=== PATIENT | male | born 1980 | race Caucasian/White ===

== ENCOUNTER 2023-11-07 09:21 | Outpatient (CLI) | payer OTHER, SELFPAY ==
--- NOTE | 2023-12-01 23:37 | WPDSLEEPSTUD ---
Sleep Study Date of Study: 11/07/23 Ordering Provider: Radha Amaral Interpreting Physician: Nini Wild MD Sleep Study Type: CPAP Titration Height: 1.8 m Weight: 113.398 kg Body Mass Index: 34.8 Neck Circumference (inches): 16 [place]: 6 Reason for Sleep Study CPAP titration; home sleep test 11/07/2022, severe obstructive sleep apnea; apnea-hypopnea index was 38.9, 91% obstructive events, 9% central events. Sleep History Remi Bradley is a 43-year-old man with a history of sleep apnea, had a home sleep test using a [place] 6 channel device on 11/07/2022, apnea-hypopnea index was 38.9, 210 obstructive apneas (91%) and 21 (9%) central apneas. His mean saturation was 93% lowest saturation was 78% and he spent 37 minutes, 10% the study below 90%. He was diagnosed with severe obstructive sleep apnea. His home sleep test recommended an autoPAP device. He rarely awakens from sleep feeling short of breath. He never wakes at night with heartburn, belching or coughing.??He constantly snores, and it is always loud enough that others complain. He occasionally has trouble sleeping when he has a cold. He never wakes up gasping for breath during the night. He frequently has breathing problems at night witnessed by others. He never sweats excessively at night. He never notices his heart pounding or beating irregularly during the night. He rarely falls asleep during the day. He never falls asleep involuntarily, never falls asleep while driving. He never experiences loss of muscle tone with strong emotion. He never has daytime difficulty at work due to excessive sleepiness. He never feels paralyzed on waking or falling asleep. He never experiences vivid dreams upon waking or falling asleep. He never feels afraid of going to sleep. He never has nightmares. He rarely recalls his dreams. He never has thoughts racing through his mind. He never feels sad or depressed. He occasionally feels anxiety. He never notices parts of his body jerk. He never kicks during the night. He never feels crawling or aching feelings in his legs. He never feels leg pain at night. He never has morning jaw pain, never grinds his teeth at night. He never feels bothered by pain during the day, never awakened by pain during the night. He occasionally wakes up feeling stiff in the morning, and he never wakes feeling sore or achy. He occasionally awakens with pain in his neck, spine, or joints. Normal bedtime is between 11:00 p.m. and 12 midnight, falling asleep within 15-30 minutes, without episodes of waking during the night. If he does awaken he is only awake for 5 minutes. He may go to the bathroom and let the dogs out. His normal wake time is 5:45 a.m.. On weekends, he also goes to bed between 11:00 p.m. and 12 midnight, sleeps later, until 9:00 a.m.. He estimates getting between 6 and 7 hours of sleep at night. He does not take naps in the afternoon or evening. A short nap lasting 10-15 minutes is not refreshing. Habits:??Tobacco: Never smoker Caffeine: 2-3 servings a day. Alcohol: rare Recreational substances: none PMFSH Past Medical History Medical History (Updated 12/02/23 @ 00:02 by Nini Wild MD) Anxiety Hypertension Obstructive sleep apnea Seasonal allergies Syncope Surgical History Surgical History (Updated 12/01/23 @ 23:48 by Nini Wild MD) Status post appendectomy 2007 Social History Social History (Updated 12/01/23 @ 23:43 by Nini Wild MD) Smoking status: Never smoker Substance use: never Medications Medications: Metoprolol succinate 100 mg extended release daily Losartan potassium 100 mg daily Paroxetine hydrochloride Sleep Procedure A full CPAP polysomnogram using the [email or web address] multi-channel system recorded the standard physiologic parameters including EEG, EOG, submentalis EMG, anterior tibialis EMG, EKG, body position, nasal and oral airflow using nasal pressu
[2023-12-01 23:56] VITALS: BMI 34.8
== END 2023-11-08 06:49 | disposition home or self-care (01) ==
DX: G47.33 Obstructive sleep apnea (adult) (pediatric) (principal); Z68.34 Body mass index [BMI] 34.0-34.9, adult
CPT/HCPCS: 95811

== ENCOUNTER 2024-07-09 12:29 | Emergency (ER) | payer OTHER, SELFPAY ==
--- NOTE | ~2024-07-09 | XR_ITS ---
EXAMINATION: XR chest 2V DATE: 07/09/2024 14:05 INDICATION: Chest pain. Upper respiratory tract infection. TECHNIQUE: PA and lateral views of the chest were obtained. COMPARISON: Chest radiograph dated 12/11/2015 FINDINGS: The lungs remain clear with no focal airspace opacities, pulmonary edema, pleural effusion or pneumot horax. The cardiomediastinal silhouette is normal. Mild thoracic spondylosis. IMPRESSION: 1. No acute cardiopulmonary disease. Reviewed, dictated and finalized at location B. RAL RESOURCE ECONOMIST
[2024-07-09 12:39] VITALS: BP 153/100; PULSE 67; RESP 16; TEMP 36.4; O2SAT 98
--- OUTSIDE RECORDS SUMMARY | 2024-07-09 13:16 | XMS_ITS | Clinical Summary ---
Author Organization [facility] Address [address] [place] [address] Care Team Providers Care Truck Leasing Manager Name Role Phone Shani Alford MD Primary Care Provider [phone] Source Comments [facility],non-owned Affiliates and Associated Physician Practices is amultiple site organization consisting of ambulatory clinics and hospital sitesin [place], [place]. This disclosure is being madepursuant to the Care Everywhere program and may not contain all information available regarding this patient. Last updated 18.[facility] Medications Be aware that medications may not be up to date on this document. Always verify current medications with the patient. No known medications Active Problems No known active problems Social History Tobacco Use Types Packs/Day Years Used Date Smoking Tobacco: Never Assessed Sex and Gender Information Value Date Recorded Sex Assigned at Not on file Gender Identity Not on file Sexual Orientation Not on file Last Filed Vital Signs Vital Sign Reading Time Taken Comments Blood Pressure 134/90 10/05/2016 5:00 PM CDT Pulse 87 10/05/2016 5:00 PM CDT Temperature 36.9 ??C (98.4 ??F) 10/05/2016 5:00 PM CD T Respiratory Rate 18 10/05/2016 5:00 PM CDT Oxygen Saturation 96% 10/05/2016 5:00 PM CDT Inhaled Oxygen Concentration - - Weight 99.8 kg (220 lb) 10/05/2016 5:00 PM CDT Height 180.3 cm (5' 11 ) 10/05/2016 5:00 PM CDT Body Mass Index 30.68 10/05/2016 5:00 PM CDT Plan of Treatment Health Maintenance Due Date Last Done Comments COLOGUARD (AGES 45-75) - COL ON CA SCREENING 1978 COLON MONITORING 1978 COLONOSCOPY - COLON CA SCREENING 1978 CT COLONOGRAPHY - COLON CA SCREENING 1978 Colorectal Cancer Screening 1978 FIT - COLON CA SCREENING 1978 FLEX SIG - COLON CA SCREENING 1978 LIPID TESTING 1978 HIV SCREENING 1993 HEPATITIS C SCREENING 10/24/1996 DTAP/TDAP/TD VACCINES (1 - Tdap) 1997 HEPATITIS B VACCINE (1 of 3 - 19+ 3-dose series) 1997 COVID-19 VACCINE (1 - 2023-2 5 season) 2024 INFLUENZA VACCINE (#1) 2024 DEPRESSION SCREENING 06/10/2024 ZOSTER VACCINE (1 of 2) 2028 HIB VACCINE Aged Out No longer eligi ble based on patient's age to complete this topic HPV VACCINE Aged Out No longer eligi ble based on patient's age to complete this topic MENINGOCOCCAL (Group B) VACCINE Aged Out No longer eligible based on patient's age to complete this topic MENINGOCOCCAL VACCINE Aged Out No lety di eligible based on patient's age to complete this topic PNEUMOCOCCAL VACCINE Aged Out No long er eligible based on patient's age to complete this topic Care Teams Truck Leasing Manager Relationship Specialty Start Date End Date Shani Alford MD PCP - General Internal Medicine 10/05/16
--- OUTSIDE RECORDS SUMMARY | 2024-07-09 13:16 | XMS_ITS | Clinical Summary ---
Author Organization [facility] Address [address] [place] [address]. [place], [place] [id number] [place] [address] Care Team Providers Care Firepot Operator And Tender Name Role Phone Unavailable Primary Care Provider Unavailabl e Social History Tobacco Use Types Packs/Day Years Used Date Smoking Tobacco: Never Assessed Sex and Gender Information Value Date Recorded Sex Assigned at Not on file Legal Sex Male 12:38 PM CDT Gender Identity Not on file Sexual Orientation Not on file Plan of Treatment Health Maintenance Due Date Last Done Comments Colorectal Cancer Screening Colonoscopy (10 Years) 1978 Annual Physical 1981 Hepatitis C 1996 DTaP, Tdap and Td Vaccines ( 1 - Tdap) 1997 Hepatitis B Vaccines (1 of 3 - 19+ 3-dose series) 1997 COVID-19 Vaccine (2023-2 5 season) 2024 Influenza Adult (#1) 2024 HPV Vaccines Aged Out No longer eligi ble based on patient's age to complete this topic Meningococcal B Vaccine Aged Out No l onger eligible based on patient's age to complete this topic Meningococcal Vaccine Aged Out No lety di eligible based on patient's age to complete this topic Pneumococcal Vaccine: Pediat rics (0 to 5 Years) and At-Risk Patients (6 to 64 Years) Aged Out No longer eligible b ased on patient's age to complete this topic RSV Immunizations Under 20 Months Aged Out No longer eligible based on patient's age to complete this topic Insurance [employer]
--- OUTSIDE RECORDS SUMMARY | 2024-07-09 13:16 | XMS_ITS | Patient Health Summary ---
Author Organization [facility] Address [address] [place] [address] Care Team Providers Care Public Policy Professor Name Role Phone Shani Alford MD Primary Care Provider [phone] Note from [facility],non-owned Affiliates and Associated Physician Practices is amultiple site organization consisting of ambulatory clinics and hospital sitesin [place], [place], [place] and [place]. This disclosure is being madepursuant to the Care Everywhere program and may not contain all information available regarding this patient. Last updated 18.[facility] Medications Be aware that medications may not [...] Mass Index 30.68 10/05/2016 5:00 PM CDT Care Teams Public Policy Professor Relationship Specialty Start Date End Date Shani Alford MD PCP - General Internal Medicine 10/05/16
--- OUTSIDE RECORDS SUMMARY | 2024-07-09 13:16 | XMS_ITS | Referral Summary ---
Author Organization [facility] Address [address] [place] [address] Care Team Providers Care Manager Provider Relations Name Role Phone Shani Alford MD Primary Care Provider [phone] Source Comments [facility],non-owned Affiliates and Associated Physician Practices is amultiple site organization consisting of ambulatory clinics and hospital sitesin [place], [place], [place] and [place]. This disclosure is being madepursuant to the Care Everywhere program and may not contain all information available regarding this patient. Last updated 18.[facility] Medications Be aware that medications may not [...] 10/05/2016 5:00 PM CDT Plan of Treatment Not on file Care Teams Manager Provider Relations Relationship Specialty Start Date End Date Shani Alford MD PCP - General Internal Medicine 10/05/16
--- NOTE | 2024-07-09 13:19 | ED_ITS ---
HPI - Recheck/Abnormal Lab/Rx General Chief Complaint: Recheck/Abnormal Lab/Rx <Puja Wheeler PA-C - Last Filed: 07/10/24 17:26> Stated Complaint: enlarged lymph nodes <Puja Wheeler PA-C - Last Filed: 07/10/24 17:26> Time Seen by Provider: 07/09/24 13:19 <Puja Wheeler PA-C - Last Filed: 07/10/24 17:26> Focused HPI: This is a 43 year old male that presents to the ER for back pain. Ongoing over the last couple of months. Reports he went to a chiropractor recently and his blood pressure was high. Reports he has had some tightness in his left chest and arm. This has been ongoing over the last week. He believes his lymph nodes in his neck have been sore for a couple of months. He did recently have mono. GENERAL: Well-appearing, well-nourished, and in no acute distress. HEAD: Normocephalic, atraumatic. CHEST: Clear to auscultation. ?No respiratory distress. HEART: Regular rate and rhythm.? NEURO: ?Alert and oriented x3. Patient screened in triage and initial orders placed.? ?Additional care and disposition to be based upon?diagnostic testing and treatment. <Puja Wheeler PA-C - Last Filed: 07/10/24 17:26> Related Data Allergies/Adverse Reactions: Allergies Allergy/AdvReac Type Severity Reaction Status Date / Time cephalexin Allergy Unknown Hives Verified 07/09/24 12:32 <Puja Wheeler PA-C - Last Filed: 07/10/24 17:26> Review of Systems 2 Review of Systems: All systems reviewed & are unremarkable except as noted in HPI and below <Puja Wheeler PA-C - Last Filed: 07/10/24 17:26> PMFSH Past Medical History Medical History: Medical History (Updated 07/10/24 @ 17:26 by Puja Wheeler PA-C) Obstructive sleep apnea Seasonal allergies Syncope Anxiety Hypertension <Puja Wheeler PA-C - Last Filed: 07/10/24 17:26> Surgical History Surgical History: Surgical History (Updated 12/01/23 @ 23:48 by Nini Wild MD) Status post appendectomy 2007 <Puaj Wheeler PA-C - Last Filed: 07/10/24 17:26> Social History Social History: Social History (Updated 12/01/23 @ 23:43 by Nini Wild MD) Smoking status: Never smoker Substance use: never <Puja Wheeler PA-C - Last Filed: 07/10/24 17:26> Exam 2 Narrative: APPEARANCE: No apparent distress. Head: atraumatic. EYES: EOMI, NOSE: Atraumatic NECK: Trachea midline RESPIRATORY: No increased rate of breathing CTAB CARDIOVASCULAR: RRR, no peripheral edema ABDOMINAL: Non-distended nontender MUSCULOSKELETAl: No obvious deformities NEURO: Alert. Cranial nerves 2-12 grossly intact. Sensation light touch, motor function cerebellar function intact for 4 extremities. Gait exam was normal. SKIN:: Warm, dry. Normal color PSYCHIATRIC: Normal affect <Rob Rios MD - Last Filed: 07/09/24 20:32> Course Vital Signs Vital signs: Vital Signs Temperature 97.6 F 07/09/24 12:39 Pulse Rate 67 07/09/24 12:39 Respiratory Rate 16 07/09/24 12:39 Blood Pressure 153/100 H 07/09/24 12:39 Pulse Oximetry 98 07/09/24 12:39 Temperature 97.6 F 07/09/24 16:33 Pulse Rate 62 07/09/24 16:33 Respiratory Rate 16 07/09/24 16:33 Blood Pressure 150/94 H 07/09/24 16:33 Pulse Oximetry 100 07/09/24 16:33 <Puja Wheeler PA-C - Last Filed: 07/10/24 17:26> Vital Signs Temperature 97.6 F 07/09/24 12:39 Pulse Rate 67 07/09/24 12:39 Respiratory Rate 16 07/09/24 12:39 Blood Pressure 153/100 H 07/09/24 12:39 Pulse Oximetry 98 07/09/24 12:39 Temperature 97.6 F 07/09/24 16:33 Pulse Rate 62 07/09/24 16:33 Respiratory Rate 16 07/09/24 16:33 Blood Pressure 150/94 H 07/09/24 16:33 Pulse Oximetry 100 07/09/24 16:33 <Rob Rios MD - Last Filed: 07/09/24 20:32> MDM - Recheck/Abnormal Lab/Rx MDM Narrative Medical decision making narrative: -Course: This is a 43-year-old male presenting with concerns about his blood pressure. Over last 6 weeks he has been having intermittent sharp pains in his back and left arm just above the elbow. He has been treated with career orientation teacher with minimal relief. They told him that his blood pressure was elevated and this made him very worried that he might be having a heart attack or have some other medical reason for his elevated blood pressures. Blood pressure mildly elevated 150/90. Otherwise vital signs stable he is very well-appearing. History and physical are unremarkable. His laboratory studies EKG and chest x-ray are all within normal limits. Based on his story pain sounds MSK. Patient will be discharged follow-up with primary care physician. Given return precautions. -DDX includes but is not limited to: Anxiety, MSK pain, neuropathy, ACS pneumonia pneumothorax muscle spasm -Co-morbidities complicating care: Hypertension <Rob Rios MD - Last Filed: 07/09/24 20:32> Lab Data Result diagrams: 07/09/24 18:37 07/09/24 13:56 <Puja Wheeler PA-C - Last Filed: 07/10/24 17:26> Labs: Lab Results 07/09/24 07/09/24 Range/Units 13:56 18:37 WBC 8.6 (4.5-10.0) K/mm3 RBC 5.31 (4.6-6.20) M/mm3 Hgb 15.8 (14.0-18.0) g/dL Hct 46.9 (42.0-52.0) % MCV 88.3 (80-100) fl MCH 29.8 (26-34) pg MCHC 33.7 (32-36) g/dl RDW 13.1 (11.5-14.5) % Plt Count 281 (150-375) k/mm3 MPV 11.0 H (7.4-10.4) fl Immature Gran % (Auto) 0.3 (0-0.5) % Neut % (Auto) 67.6 (45.5-73.1) % Lymph % (Auto) 25.6 (18.3-44.2) % [place] % (Auto) 5.2 (2.6-8.5) % Eos % (Auto) 1.0 (0-4.4) % Baso % (Auto) 0.3 (0.2-1.2) % Lymph # (Auto) 2.20 (0.9-3.2) K/mm3 [place] # (Auto) 0.5 (0.1-0.6) K/mm3 Eos # (Auto) 0.1 (0-0.3) K/mm3 Baso # (Auto) 0.0 (0.0-0.1) K/mm3 Abs Immat Gran (auto) 0.03 (0.00-0.031) K/mm3 Absolute Neuts (auto) 5.8 (1.3-6.7) K/mm3 Absolute Nucleated RBC 0.000 (0.0-0.012) K/mm3 Nucleated RBC % 0.0 (0.0-0.2) % PT 13.0 (11.1-14.7) Seconds INR 0.9 APTT 27.0 (22.3-36.8) Seconds Sodium 145 (137-145) mmol/L Potassium 3.8 (3.4-5.0) mmol/L Chloride 105 (98-107) mmol/L Carbon Dioxide 32 H (22-30) mmol/L Anion Gap 8 (4-12) mmol/L BUN 21 H (9-20) mg/dL Creatinine 0.81 (0.7-1.3) mg/dL Estim Creat Clear Calc Not Reportable Estimated GFR > 60 (59 - ) Glucose 101 (65-110) mg/dL Calcium 9.3 (8.4-10.2) mg/dL Total Bilirubin 0.6 (0.2-1.3) mg/dL AST 25 (17-59) U/L ALT 29 (6-50) U/L Alkaline Phosphatase 98 (38-126) U/L Troponin I < 0.012 < 0.012 (0.000-0.034) ng/mL Total Protein 8.0 (6.3-8.2) g/dL Albumin 4.6 (3.5-5.1) g/dL Lipase 196 (23-300) U/L <Puja Wheeler PA-C - Last Filed: 07/10/24 17:26> Lab Results 07/09/24 07/09/24 Range/Units 13:56 18:37 WBC 8.6 (4.5-10.0) K/mm3 RBC 5.31 (4.6-6.20) M/mm3 Hgb 15.8 (14.0-18.0) g/dL Hct 46.9 (42.0-52.0) % MCV 88.3 (80-100) fl MCH 29.8 (26-34) pg MCHC 33.7 (32-36) g/dl RDW 13.1 (11.5-14.5) % Plt Count 281 (150-375) k/mm3 MPV 11.0 H (7.4-10.4) fl Immature Gran % (Auto) 0.3 (0-0.5) % Neut % (Auto) 67.6 (45.5-73.1) % Lymph % (Auto) 25.6 (18.3-44.2) % [place] % (Auto) 5.2 (2.6-8.5) % Eos % (Auto) 1.0 (0-4.4) % Baso % (Auto) 0.3 (0.2-1.2) % Lymph # (Auto) 2.20 (0.9-3.2) K/mm3 [place] # (Auto) 0.5 (0.1-0.6) K/mm3 Eos # (Auto) 0.1 (0-0.3) K/mm3 Baso # (Auto) 0.0 (0.0-0.1) K/mm3 Abs Immat Gran (auto) 0.03 (0.00-0.031) K/mm3 Absolute Neuts (auto) 5.8 (1.3-6.7) K/mm3 Absolute Nucleated RBC 0.000 (0.0-0.012) K/mm3 Nucleated RBC % 0.0 (0.0-0.2) % PT 13.0 (11.1-14.7) Seconds INR 0.9 APTT 27.0 (22.3-36.8) Seconds Sodium 145 (137-145) mmol/L Potassium 3.8 (3.4-5.0) mmol/L Chloride 105 (98-107) mmol/L Carbon Dioxide 32 H (22-30) mmol/L Anion Gap 8 (4-12) mmol/L BUN 21 H (9-20) mg/dL Creatinine 0.81 (0.7-1.3) mg/dL Estim Creat Clear Calc Not Reportable Estimated GFR > 60 (59 - ) Glucose 101 (65-110) mg/dL Calcium 9.3 (8.4-10.2) mg/dL Total Bilirubin 0.6 (0.2-1.3) mg/dL AST 25 (17-59) U/L ALT 29 (6-50) U/L Alkaline Phosphatase 98 (38-126) U/L Troponin I < 0.012 < 0.012 (0.000-0.034) ng/mL Total Protein 8.0 (6.3-8.2) g/dL Albumin 4.6 (3.5-5.1) g/dL Lipase 196 (23-300) U/L <Rob Rios MD - Last Filed: 07/09/24 20:32> Imaging Data Radiologist's impression: ITS Impressions Chest X-Ray 07/09/24 14:08 IMPRESSION: 1. No acute cardiopulmonary disease. <Puja Wheeler PA-C - Last Filed: 07/10/24 17:26> Critical Care Time Critical Care Time Critical Care Time: No <Puja Wheeler PA-C - Last Filed: 07/10/24 17:26> Discharge Plan Discharge Clinical Impression: Arm pain Qualifiers: Laterality: left Qualified Code(s): M79.602 - Pain in left arm Hypertension Qualifiers: Hypertension type: unspecified Qualified Code(s): I10 - Essential (primary) hypertension <Puja Wheeler PA-C - Last Filed: 07/10/24 17:26> Patient Disposition: Home, Self-Care <Puja Wheeler PA-C - Last Filed: 07/10/24 17:26> Condition: Stable <Puja Wheeler PA-C - Last Filed: 07/10/24 17:26> Instructions: Antibiotic Form, Hypertension (ED) <Puja Wheeler PA-C - Last Filed: 07/10/24 17:26> Additional Instructions: You were seen in the emergency department for arm pain. Please follow-up with your primary care physician. You may need to adjust your hypertension medications. Developed chest pain shortness of breath or any new or worsening symptoms he can return to the ED at any time for re-evaluation. <Puja Wheeler PA-C - Last Filed: 07/10/24 17:26> Patient Language: Citizen Of [place] <Puja Wheeler PA-C - Last Filed: 07/10/24 17:26> Follow-up/Referrals: PHYSICIAN NOT ON STAFF,NONSTAFF [Non-Staff] - <Puja Wheeler PA-C - Last Filed: 07/10/24 17:26>
--- NOTE | 2024-07-09 13:22 | ECG_ITS ---
Test Date: 2024-07-09 13:49:51 Measurements Intervals [place] Rate: 64 P: 31 OR: 183 QRS: 21 QRSD: 89 T: 23 QT: 363 QTc: 375 Interpretive Statements SINUS RHYTHM No previous ECG available for comparison Electronically Signed On 07-09-2024 14:33:43 STEEL ERECTING PUSHER by Miguel Livingston M.D.
[2024-07-09 14:17] LABS: Alanine Aminotransferase 29 U/L (6-50); Albumin Level 4.6 g/dL (3.5-5.1); Alkaline Phosphatase 98 U/L (38-126); Anion Gap 8 mmol/L (4-12); Aspartate Amino Transferase 25 U/L (17-59); Bilirubin,Total 0.6 mg/dL (0.2-1.3); Blood Urea Nitrogen 21 mg/dL (9-20); Calcium 9.3 mg/dL (8.4-10.2); Carbon Dioxide 32 mmol/L (22-30); Chloride 105 mmol/L (98-107); Estimated Glomerular Filt Rate > 60; Glucose 101 mg/dL (65-110); Lipase 196 U/L (23-300); Potassium 3.8 mmol/L (3.4-5.0); Sodium 145 mmol/L (137-145)
[2024-07-09 14:28] LABS: Troponin I < 0.012 ng/mL (0.000-0.034)
--- OUTSIDE RECORDS SUMMARY | 2024-07-09 15:02 | XMS_ITS | Referral Summary ---
Author Organization [facility] Address [address] [place] [address] Care Team Providers Care Terra Cotta Mason Name Role Phone Shani Alford MD Primary Care Provider [phone] Source Comments [facility],non-owned Affiliates and Associated Physician Practices is amultiple site organization consisting of ambulatory clinics and hospital sitesin [place], [place], [place] and [place]. This disclosure is being madepursuant to the Care Everywhere program and may not contain all information available regarding this patient. Last updated 18.[facility] Medications Be aware that medications may not [...] of Treatment Not on file Care Teams Terra Cotta Mason Relationship Specialty Start Date End Date Shani Alford MD PCP - General Internal Medicine 10/05/16
--- OUTSIDE RECORDS SUMMARY | 2024-07-09 15:02 | XMS_ITS | Patient Health Summary ---
Author Organization [facility] Address [address] [place] [address] Care Team Providers Care Getter Operator Name Role Phone Shani Alford MD Primary Care Provider [phone] Note from [facility],non-owned Affiliates and Associated Physician Practices is amultiple site organization consisting of ambulatory clinics and hospital sitesin [place], [place], [place] and [place]. This disclosure is being madepursuant to the Care Everywhere program and may not contain all information available regarding this patient. Last updated 18.[facility] Medications Be aware that medications may not [...] 30.68 10/05/2016 5:00 PM CDT Care Teams Getter Operator Relationship Specialty Start Date End Date Shani Alford MD PCP - General Internal Medicine 10/05/16
--- OUTSIDE RECORDS SUMMARY | 2024-07-09 15:03 | XMS_ITS | Clinical Summary ---
Author Organization [facility] Address [address] [place] [address] Care Team Providers Care Academic Affairs Director Name Role Phone Shani Alford MD Primary Care Provider [phone] Allergies Active Allergy Reactions Criticality Noted Date Comments Cephalexin Nabumetone Medications losartan (COZAAR) 50 mg tablet Take 50 mg by mouth daily Active acetaminophen (TYLENOL) 325 mg tablet Take 2 tablets (650 mg total) by mouth every 6 (six) hours as needed for pain 30 tablet 03/06/2021 Active cyclobenzaprine (FLEXERIL) 10 mg tablet Take 10 mg by mouth 3 (three) times a day 02/27/[address] (VOLTAREN) 75 mg EC tablet Take 75 mg by mouth 2 (two) times a day 02/27/2021 Active Active Problems Problem Noted Date Diagnosed Date Acute pain of right knee 03/13/2021 Quadriceps strain, right, initial encounter 09/2020 Feces contents abnormal 06/04/2013 Surgical History Surgery Date Site/Laterality Comments APPENDECTOMY 2007 Appendectomy OTHER SURGICAL HISTORY hematochezia: hemorrhoids Medical History Medical History Date Comments Hx Other Medical hematochezia Hypertension Family History Medical History Relation Name Comments Other Father ankylosing spon dylitis; Other Sister 2 Ankylosing Spon dylitis; on enbrel Relation Name Status Comments Father Sister 1 Alive Sister 2 Social History Tobacco Use Types Packs/Day Years Used Date Smoking Tobacco: Never Smokeless Tobacco: Never Alcohol Use Standard Drinks/Week Comments Yes 0 (1 standard drink = 0.6 oz pur e alcohol) Sex and Gender Information Value Date Recorded Sex Assigned at Not on file Legal Sex Male 8:19 AM BASTING PULLER Gender Identity Not on file Sexual Orientation Not on file Obstetrics History Last Filed Vital Signs Vital Sign Reading Time Taken Comments Blood Pressure 153/94 03/06/2021 4:00 PM CDT Pulse 94 03/06/2021 4:00 PM CDT Temperature 36.1 ??C (96.9 ??F) 03/06/2021 10:21 AM C DT Respiratory Rate 18 03/06/2021 4:00 PM CDT Oxygen Saturation 98% 03/06/2021 4:00 PM CDT Inhaled Oxygen Concentration - - Weight 106.6 kg (235 lb) 03/13/2021 7:51 AM CDT Height 180.3 cm (5' 11 ) 03/13/2021 7:51 AM CDT Body Mass Index 32.78 03/13/2021 7:51 AM CDT Plan of Treatment Not on file Insurance [employer] OPEN ACCESS [employer] OPEN ACCESS [employer] OPEN ACCESS Care Teams Academic Affairs Director Relationship Specialty Start Date End Date Shani Alford MD PCP - General 08/23/09
--- OUTSIDE RECORDS SUMMARY | 2024-07-09 15:03 | XMS_ITS | Referral Summary ---
Author Organization [facility] Address [address] [place] [address] Care Team Providers Care Transport Medic Name Role Phone Shani Alford MD Primary Care Provider [phone] Allergies Active Allergy Reactions Criticality Noted Date [...] initial encounter 09/2020 Feces contents abnormal 06/04/2013 Social History Tobacco Use Types Packs/Day Years Used Date Smoking Tobacco: Never Smokeless Tobacco: Never Alcohol Use Standard Drinks/Week Comments Yes 0 (1 standard drink = 0.6 oz pur e alcohol) Sex and Gender Information Value Date Recorded Sex Assigned at Not on file 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
--- OUTSIDE RECORDS SUMMARY | 2024-07-09 15:03 | XMS_ITS | Clinical Summary ---
Author Organization [facility] Address [address] [place] [address] Care Team Providers Care Wool Cleaner Name Role Phone Shani Alford MD Primary Care Provider [phone] Source Comments [facility],non-owned Affiliates and Associated Physician Practices is amultiple site organization consisting of ambulatory clinics and hospital sitesin [place], [place], [place] and [place]. This disclosure is being madepursuant to the Care Everywhere program and may not contain all information available regarding this patient. Last updated 18.[facility] Medications Be aware that medications may not [...] age to complete this topic Care Teams Wool Cleaner Relationship Specialty Start Date End Date Shani Alford MD PCP - General Internal Medicine 10/05/16
--- OUTSIDE RECORDS SUMMARY | 2024-07-09 15:03 | XMS_ITS | Clinical Summary ---
Author Organization [facility] Address [address] [place] [address]. [place], [place] [address] [place] [address] Care Team Providers Care Chocolate Maker Name Role Phone Unavailable Primary Care Provider [...]
[2024-07-09 16:33] VITALS: BP 150/94; PULSE 62; RESP 16; TEMP 36.4; O2SAT 100
--- NOTE | 2024-07-09 17:55 | ECG_ITS ---
Test Date: 2024-07-09 20:13:33 Measurements Intervals Itmann Rate: 65 P: 50 NH: 170 QRS: 45 QRSD: 110 T: 31 QT: 380 QTc: 395 Interpretive Statements SINUS RHYTHM WITH OCCASIONAL VENTRICULAR PREMATURE COMPLEXES Compared to ECG 07/09/2024 13:49:51 Ventricular premature complex(es) now present Electronically Signed On 07-10-2024 14:20:00 BUYING INTERN by Demetrius Aguilera M.D.
[2024-07-09 18:44] LABS: Basophils Percent Auto 0.3 % (0.2-1.2); Eosinophils Absolute Auto 0.1 K/mm3 (0-0.3); Hematocrit 46.9 % (42.0-52.0); Hemoglobin 15.8 g/dL (14.0-18.0); Immature Granulocyte Absolute 0.03 K/mm3 (0.00-0.031); Immature Granulocyte Percent A 0.3 % (0-0.5); Lymphocytes Percent Auto 25.6 % (18.3-44.2); Mean Corpuscular HGB Conc 33.7 g/dl (32-36); Mean Corpuscular Hemoglobin 29.8 pg (26-34); Mean Corpuscular Volume 88.3 fl (80-100); Monocytes Absolute Auto 0.5 K/mm3 (0.1-0.6); Monocytes Percent Auto 5.2 % (2.6-8.5); Neutrophils Absolute Auto 5.8 K/mm3 (1.3-6.7); Neutrophils Percent Auto 67.6 % (45.5-73.1); Platelet Count Result 281 k/mm3 (150-375); Red Blood Count 5.31 M/mm3 (4.6-6.20); Red Cell Distribution Width 13.1 % (11.5-14.5); White Blood Count 8.6 K/mm3 (4.5-10.0)
[2024-07-09 19:02] LABS: INR 0.9
[2024-07-09 19:52] LABS: Troponin I < 0.012 ng/mL (0.000-0.034)
== END 2024-07-09 20:58 | disposition home or self-care (01) ==
PROVIDERS: Physician Assistant; Emergency Provider Emergency Medicine
DX: M79.622 Pain in left upper arm (principal); I10 Essential (primary) hypertension; G47.33 Obstructive sleep apnea (adult) (pediatric); I49.3 Ventricular premature depolarization
CPT/HCPCS: 36415; 71046; 80053; 83690; 84484; 85025; 85610; 85730; 93005; 99284

== ENCOUNTER 2024-10-19 07:30 | Outpatient (CLI) | payer OTHER, SELFPAY ==
--- NOTE | ~2024-10-19 | XR_ITS ---
XR shoulder LT min 2V Ordering provider: Ricardo Hughes History: . Left shoulder pain, left sided T-spine pain . Comparison: None. FINDINGS: BONES: No acute fracture or dislocation. JOINT SPACES: The acromioclavicular joint is normal. The glenohumeral joint is normal. SOFT TISSUES: Normal. IMPRESSION: No acute osseous abnormality left shoulder. Reviewed, dictated and finalized at location A.
--- NOTE | ~2024-10-19 | XR_ITS ---
3 VIEWS THORACIC SPINE Ordering provider: Ricardo Hughes History: . Left shoulder pain, left sided T-spine pain . Comparison: None. FINDINGS: VERTEBRAL BODIES: Normal height and alignment. No visible fracture or subluxation. Degenerative lira es of the spine. DISK SPACES: Normal. SOFT TISSUES: Normal. IMPRESSION: No acute osseous abnormality of the thoracic spine. Reviewed, dictated and finalized at location A.
== END 2024-10-19 07:31 | disposition home or self-care (01) ==
DX: M54.6 Pain in thoracic spine (principal); M25.512 Pain in left shoulder
CPT/HCPCS: 72070; 73030

== ENCOUNTER 2025-02-25 00:57 | Day surgery (SDC) | payer OTHER, SELFPAY ==
[2025-02-09 13:34] VITALS: BMI 34.9
--- OUTSIDE RECORDS SUMMARY | 2025-02-25 00:59 | XMS_ITS | Clinical Summary ---
Author Organization [email or web address] Address [address] [place] [address] Care Team Providers Care Escalator Attendant Name Role Phone Shani Alford MD Primary Care Provider [phone] Source Comments [email or web address],non-owned Affiliates and Associated Physician Practices is amultiple site organization consisting of ambulatory clinics and hospital sitesin [place], [place], [place] and [place]. This disclosure is being madepursuant to the Care Everywhere program and may not contain all information available regarding this patient. Last updated 18.[email or web address] Medications * Be aware that medications may not be up to date on this document. Alwaysverify current medications with the patient. No known medications Active Problems No known active problems Social History Tobacco Use Types Packs/Day Years Used Date Smoking Tobacco: Never Assessed Sex and Gender Information Value Date Recorded Sex Assigned at Not on file Legal Sex Male 9:24 AM CDT Gender Identity Not on file Sexual Orientation Not on file Last Filed Vital Signs Vital Sign Reading Time Taken Comments Blood Pressure 134/90 10/05/2016 5:00 PM CDT Pulse 87 10/05/2016 5:00 PM CDT Temperature 36.9 C (98.4 F) 10/05/2016 5:00 PM CDT Respiratory Rate 18 10/05/2016 5:00 PM CDT Oxygen Saturation 96% 10/05/2016 5:00 PM CDT Inhaled Oxygen Concentration - - Weight 99.8 kg (220 lb) 10/05/2016 5:00 PM CDT Height 180.3 cm (5' 11) 10/05/2016 5:00 PM CDT Body Mass Index [...] of 3 - 19+ 3-dose series) 1997 DEPRESSION SCREENING 06/10/2024 COVID-19 VACCINE (1 - 2023-2 5 season) 2025 INFLUENZA VACCINE (#1) 2025 ZOSTER VACCINE (1 of 2) 2028 HIB VACCINE Aged Out No longer eligi ble based on patient's age to complete this topic HPV VACCINE Aged Out No longer eligi ble based on patient's age to complete this topic MENINGOCOCCAL (Group B) VACC INE SHARED DECISION-MAKING Aged Out No longer eligibl e based on patient's age to complete this topic MENINGOCOCCAL GROUPS A/C/Y/W VACCINE Aged Out No longer eligible b ased on patient's age to complete this topic PNEUMOCOCCAL VACCINE Aged Out No long er eligible based on patient's age to complete this topic Insurance [facility] Care Teams Escalator Attendant Relationship Specialty Start Date End Date Shani Alford MD PCP - General Internal Medicine 10/05/16
--- OUTSIDE RECORDS SUMMARY | 2025-02-25 00:59 | XMS_ITS | Clinical Summary ---
Author Organization [facility] Address [address] [place] [address] Care Team Providers Care Boat Hop Name Role Phone Radha Amaral MD Primary Care Provi mayur Allergies Active Allergy Reactions Criticality Noted Date Comments Cephalexin Nabumetone Medications losartan (COZAAR) 100 mg tablet Take 1 tablet (100 mg total) by mouth daily 07/11/2024 Active metoprolol XL (TOPROL-XL) 100 mg 24 hr tablet Take 1 tablet (100 mg total) by mouth daily 07/11/2024 Active PARoxetine (PAXIL) 10 mg tablet 1 tablet (10 mg total) 07/10/2024 Active multivit-min/benny archana fumarate (MULTI VITAMIN ORAL) Take by mouth Active Active Problems Problem Noted Date Diagnosed Date Chest congestion 09/16/2024 Assessment & Plan (09/16/2024 6:53 PM CDT): See program engineer later today. Sore throat 09/16/2024 Assessment & Plan (09/16/2024 6:54 PM CDT): His throat looks okay and currently is not bothering him. His tonsils are relatively small and I do not think there a problem. I recommended conservative management. He can follow up with me if problems worsen. Dysfunction of both eustachian tubes 09/16/2024 Assessment & Plan (09/16/2024 6:53 PM CDT): His ears look pretty good today. I do not find any problems. Testing also was pretty unremarkable. I recommended no intervention. I did suggest trying ear planes plugs when he is flying. Follow up if his problems continue. Acute pain of right knee 03/13/2021 Quadriceps strain, right, initial encounter 09/2020 Feces contents abnormal 06/04/2013 Encounters Date Type Department Care Team Description 12/14/2024 Results Follow-Up [facility] [address] [place] [address] Ron Pendleton MD MRI Cervical Spine WO Contrast 12/07/2024 5:40 PM CDT - 12/07/2024 11:59 PM CDT Hospital Encounter [facility] [address] [place] [address] Paresthesia and pain of left extremity; Cervical radicular pain Discharge Disposition: Discharge to home or self care 12/07/2024 4:49 PM CDT - 12/07/2024 11:59 PM CDT Hospital Encounter [facility] [address] [place] [address] Ron Pendleton MD Paresthesia and pain of left extremity; Cervical radicular pain Discharge Disposition: Discharge to home or self care from Last 3 Months Surgical History Surgery Date Site/Laterality Comments APPENDECTOMY 2007 Appendectomy OTHER SURGICAL HISTORY hematochezia: hemorrhoids Medical History Medical History Date Comments Hx Other Medical hematochezia Hypertension Allergies Family History Medical History Relation Name Comments Other Father ankylosing spon dylitis; acoustic neuroma Father Other Sister 2 Ankylosing Spon dylitis; on [...] on file 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 Gender Identity Not on file Sexual Orientation Not on file Obstetrics History Last Filed Vital Signs Vital Sign Reading Time Taken Comments Blood Pressure 143/90 09/16/2024 1:44 PM CDT Pulse 65 09/16/2024 1:44 PM CDT Temperature 36.4 C (97.5 F) 09/16/2024 1:44 PM CDT Respiratory Rate 18 09/16/2024 1:44 PM CDT Oxygen Saturation 96% 09/16/2024 1:44 PM CDT Inhaled Oxygen Concentration - - Weight 113.4 kg (250 lb) 12/07/2024 4:54 PM CDT Height 180.3 cm (5' 11) 12/07/2024 4:54 PM CDT Body Mass Index 34.87 12/07/2024 4:54 PM CDT Plan of Treatment Health Maintenance Due Date Last Done Comments Colon Cancer Screening-Colonoscopy 1978 Depression Screening 1978 Hepatitis C Screening 1978 DTaP/Tdap/Td Vaccine (1 - Tdap) 1989 Hepatitis B Screening 1996 Regular Well Visit/Exam 18-64 1996 Covid-19 Vaccine (3 - 2024-2 6 season) 2025 08/08/2020, 07/18/2020 Influenza Vaccine (#1) 2025 HPV Vaccines Aged Out No longer eligi ble based on patient's age to complete this topic Pneumococcal vaccine <65 Aged Out No longer eligible based on patient's age to complete this topic Procedures Procedure Name Priority Date/Time Associated Diagnosis Comments XR SPINE CERVICAL 2 OR 3 VIEWS Schedule Routine, Read Routine (OP Routine) 12/07/2024 5:51 PM CDT Paresthesia and pain of left extremity Cervical radicular pain MRI CERVICAL SPINE WO CONTRAST Schedule Routine, Read Routine (OP Routine) 12/07/2024 5:36 PM CDT Paresthesia and pain of left extremity Cervical radicular pain from Last 3 Months Results * X-ray cervical spine 2 or 3 views (12/07/2024 5:51 PM CDT) Anatomical Region Laterality Modality Spine N/A Computed Radiogr aphy 12/08/2024 6:40 AM CDT Impressions 12/08/2024 6:40 AM CDT No acute radiographic findings of the cervical spine. Electronically signed by: Christopher Ibarra M.D. Narrative 12/08/2024 6:40 AM CDT XR SPINE CERVICAL 2 OR 3 VIEWS HISTORY: Neck pain FINDINGS: 3 views of the cervical spine are obtained and compared with MR imaging 12/07/2024. Cervical alignment is normal. Vertebral body heights and disc spaces are preserved. 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 Soft tissues are normal. There is no fracture. Procedure Note Christopher Ibarra MD - 12/08/2024 XR SPINE CERVICAL 2 OR 3 VIEWS HISTORY: Neck pain FINDINGS: 3 views of the cervical spine are obtained and compared with MR imaging 12/07/2024. Cervical alignment is normal. Vertebral body heights and disc spaces are preserved. 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 Soft tissues are normal. There is no fracture. IMPRESSION: No acute radiographic findings of the cervical spine. Electronically signed by: Christopher Ibarra M.D. Ron Pendleton MD IMG XR PROCEDURES Final Result * MRI Cervical Spine WO Contrast (12/07/2024 5:36 PM CDT) Anatomical Region Laterality Modality Spine N/A Magnetic Resonan ce 12/08/2024 9:51 AM CDT Impressions 12/08/2024 9:59 PM CDT Mild to moderate multilevel degenerative changes of the cervical spine as described above. Dictated by: Vianey Zamora MD, MPH The radiology attending physician has personally reviewed this study, and had reviewed and/or edited this written report and agrees with it. Electronically signed by: Jimmie Kellgog M.D. Narrative 12/08/2024 9:59 PM CDT EXAMINATION: Magnetic resonance imaging (MRI) of the cervical spine without contrast HISTORY: 44-year-old male with neck and left arm pain. TECHNIQUE: Multiplanar multi-weighted MRI of the cervical spine was performed without intravenous contrast using the standard protocol. COMPARISON: Radiograph of the Cervical Spine 12/01/2012 FINDINGS: Mild straightening of the cervical spine. Vertebral bodies demonstrate slightly decreased and heterogenous T1/T2 signal intensity on all sequences, favored to be secondary to a combination of red and yellow marrow. No acute fracture is identified. The craniocervical junction is normal. The visualized portions of the skull base and the posterior fossa are normal. The spinal cord demonstrates normal signal intensity on all sequences. Intervertebral disks have normal height and signal intensity. No soft tissue abnormality is identified. C2-C3: The disk is normal in configuration. There is no facet arthropathy. There is no uncovertebral joint disease. There is no neuroforaminal stenosis. There is no spinal canal stenosis. C3-C4: Posterior disc osteophyte complex. There is no facet arthropathy. There is mild bilateral uncovertebral joint disease. There is mild right neuroforaminal stenosis. There is no spinal canal stenosis. C4-C5: The disk is normal in configuration. There is no facet arthropathy. There is mild bilateral uncovertebral joint disease. There is mild right moderate left neuroforaminal stenosis. There is no spinal canal stenosis. C5-C6: Mild disc bulge. There is mild left facet arthropathy. There is mild bilateral uncovertebral joint disease. There is vene-ma-[id number] left neuroforaminal stenosis. There is no spinal canal stenosis. C6-C7: The disk is normal in configuration. There is no facet arthropathy. There is no uncovertebral joint disease. There is no neuroforaminal stenosis. There is no spinal canal stenosis. C7-T1: The disk is normal in configuration. There is no facet arthropathy. There is no uncovertebral joint disease. There is no neuroforaminal stenosis. There is no spinal canal stenosis. Procedure Note Jimmie Kellogg MD - 12/08/2024 EXAMINATION: Magnetic resonance imaging (MRI) of the cervical spine without contrast HISTORY: 44-year-old male with neck and left arm pain. TECHNIQUE: Multiplanar multi-weighted MRI of the cervical spine was performed without intravenous contrast using the standard protocol. COMPARISON: Radiograph of the Cervical Spine 12/01/2012 FINDINGS: Mild straightening of the cervical spine. Vertebral bodies demonstrate slightly decreased and heterogenous T1/T2 signal intensity on all sequences, favored to be secondary to a combination of red and yellow marrow. No acute fracture is identified. The craniocervical junction is normal. The visualized portions of the skull base and the posterior fossa are normal. The spinal cord demonstrates normal signal intensity on all sequences. Intervertebral disks have normal height and signal intensity. No soft tissue abnormality is identified. C2-C3: The disk is normal in configuration. There is no facet arthropathy. There is no uncovertebral joint disease. There is no neuroforaminal stenosis. There is no spinal canal stenosis. C3-C4: Posterior disc osteophyte complex. There is no facet arthropathy. There is mild bilateral uncovertebral joint disease. There is mild right neuroforaminal stenosis. There is no spinal canal stenosis. C4-C5: The disk is normal in configuration. There is no facet arthropathy. There is mild bilateral uncovertebral joint disease. There is mild right moderate left neuroforaminal stenosis. There is no spinal canal stenosis. C5-C6: Mild disc bulge. There is mild left facet arthropathy. There is mild bilateral uncovertebral joint disease. There is [id number] left neuroforaminal stenosis. There is no spinal canal stenosis. C6-C7: The disk is normal in configuration. There is no facet arthropathy. There is no uncovertebral joint disease. There is no neuroforaminal stenosis. There is no spinal canal stenosis. C7-T1: The disk is normal in configuration. There is no facet arthropathy. There is no uncovertebral joint disease. There is no neuroforaminal stenosis. There is no spinal canal stenosis. IMPRESSION: Mild to moderate multilevel degenerative changes of the cervical spine as described above. Dictated by: Vianey Zamora MD, MPH The radiology attending physician has personally reviewed this study, and had reviewed and/or edited this written report and agrees with it. Electronically signed by: Jimmie Kellogg M.D. Ron Pendleton MD IMG MRI PROCEDURES Final Result from Last 3 Months Insurance [employer] OPEN ACCESS [facility] Care Teams Boat Hop Relationship Specialty Start Date End Date Radha Amaral MD [facility] [place] [address] PCP - General Internal Medicine 09/07/24
--- OUTSIDE RECORDS SUMMARY | 2025-02-25 00:59 | XMS_ITS | Clinical Summary ---
Author Organization [facility] Address [address] [place] [address] Care Team Providers Care Platform Consultant Name Role Phone Unavailable Primary Care Provider [...] series) 1997 COVID-19 Vaccine (2023-2 5 season) 2025 Meningococcal B Vaccine Aged Out No l onger eligible based on patient's age to complete this topic Meningococcal Vaccine Aged Out No lety di eligible based on patient's age to complete this topic Pneumococcal Vaccine: Pediat rics (0 to 5 Years) and At-Risk Patients (6 to 49 Years) Aged Out No longer eligible b ased on patient's age to complete this topic RSV Immunizations Under 20 Months Aged Out No longer eligible based on patient's age to complete this topic Insurance [employer]
--- OUTSIDE RECORDS SUMMARY | 2025-02-25 00:59 | XMS_ITS | Patient Health Record ---
Author Organization [facility] Primary [facility] Yusuf In Address [address] [place] [address] Care Team Providers Care Carpenter [employer] Name Role Phone NANCY NRAVAEZ Primary Care Provider Sarah Merlos Unavailable [phone] Ricardo Hughes Unavailable [phone] Allergies Allergen (clinical drug ingredient) Drug/Non Drug Allergy documented on EMR Reaction Allergy Type Onset Date Status Keflex hives Drug Allergy Active Results Component Value Reference Range Notes Hemoglobin A1c Reviewed date:10/20/2024 04:44:35 PM Interpretation: Performing Lab:[employer], [address] [facility], Phone - [phone], Director - Gia Notes/Report: Hemoglobin A1c 5.9 4.8-5.6 % . Prediabetes: 5.7 - 6.4 Diabetes: >6.4 Glycemic control for adults with diabetes: <7.0 CBC With Differential/Platel et Reviewed date:10/20/2024 04:44:35 PM Interpretation: Performing Lab:[employer], [address] [facility], [place], Phone - [phone], Director - Gia Notes/Report: WBC 7.8 3.4-10.8 x10E3/uL RBC 5.09 4.14-5.80 x10E6/uL Hemoglobin 14.9 13.0-17.7 g/dL Hematocrit 46.0 37.5-51.0 % MCV 90 79-97 fL MCH 29.3 26.6-33.0 pg MCHC 32.4 31.5-35.7 g/dL RDW 13.3 11.6-15.4 % Platelets 205 150-450 x10E3/uL Neutrophils 73 Not Estab. % Lymphs 20 Not Estab. % Monocytes 6 Not Estab. % Eos 1 Not Estab. % Basos 0 Not Estab. % Neutrophils (Absolute) 5.6 1.4-7.0 x10E3/uL Lymphs (Absolute) 1.5 0.7-3.1 x10E3/uL Monocytes(Absolute) 0.5 0.1-0.9 x10E3/uL Eos (Absolute) 0.1 0.0-0.4 x10E3/uL Baso (Absolute) 0.0 0.0-0.2 x10E3/uL Immature Granulocytes 0 Not Estab. % Immature Grans (Abs) 0.0 0.0-0.1 x10E3/uL Vitamin D, 25-Hydroxy Reviewed date:10/20/2024 04:44:35 PM Interpretation: Performing Lab:[facility] [email or web address] [address] [facility], Phone - [phone], Director - PhDSolomon [facility] Centerraza Notes/Report: Vitamin D, 25-Hydroxy 23.5 30.0-100.0 ng/mL Vitamin D deficiency has been defined by the [place] of [employer] and an Endocrine Society practice guideline as a level of serum 25-OH vitamin D less than 20 ng/mL (1,2). The Endocrine Society went on to further define vitamin D insufficiency as a level between 21 and 29 ng/mL (2). 1. IOM ([place] of [employer]). 2010. Dietary reference intakes for calcium and D. [place]: The National Academies Press. 2. Margareth MF, Yuly [place], Tierra FENTON, et al. Evaluation, treatment, and prevention of vitamin D deficiency: an Endocrine Society clinical practice guideline. JCEM. 2010; 96(7):1911-30. Microalb/Creat Ratio, Randm Ur Reviewed date:10/20/2024 04:44:35 PM Interpretation: Performing Lab:[email or web address] [address], [place], Phone - [phone], Director - PhDSol[facility] Center[facility] Notes/Report: Creatinine, Urine 161.3 Not Estab. mg/dL Albumin, Urine 8.7 Not Estab. ug/mL Alb/Creat Ratio 5 0-29 mg/g creat Normal: 0 - 29 Moderately increased: 30 - 300 Severely increased: >300 Lipid Panel With LDL/HDL Rat io Reviewed date:10/20/2024 04:44:35 PM Interpretation: Performing Lab:[facility] [place], [address] [facility], Phone - [phone], Director - PhDSolomon [facility] Center[facility]bara Notes/Report: Cholesterol, Total 141 100-199 mg/dL Triglycerides 86 0-149 mg/dL HDL Cholesterol 29 >39 mg/dL VLDL Cholesterol Rachid 17 5-40 mg/dL LDL Chol Calc ([facility]) 95 0-99 mg/dL LDL/HDL Ratio 3.3 0.0-3.6 ratio LDL/HDL Ratio Men Women 1/2 Avg.Risk 1.0 1.5 Avg.Risk 3.6 3.2 2X Avg.Risk 6.2 5.0 3X Avg.Risk 8.0 6.1 Comp. Metabolic Panel (14) Reviewed date:10/20/2024 04:44:35 PM Interpretation: Performing Lab:[facility] [place], [address] [facility], Phone - [phone], Director - [facility] Notes/Report: Glucose 95 70-99 mg/dL BUN 20 6-24 mg/dL Creatinine 0.85 0.76-1.27 mg/dL eGFR 109 >59 mL/min/1.73 BUN/Creatinine Ratio 24 9-20 Sodium 140 134-144 mmol/L Potassium 3.7 3.5-5.2 mmol/L Chloride 104 96-106 mmol/L Carbon Dioxide, Total 22 20-29 mmol/L Calcium 8.7 8.7-10.2 mg/dL Protein, Total 6.7 6.0-8.5 g/dL Albumin 4.1 4.1-5.1 g/dL Globulin, Total 2.6 1.5-4.5 g/dL Bilirubin, Total 0.5 0.0-1.2 mg/dL Alkaline Phosphatase 106 44-121 IU/L AST (SGOT) 16 0-40 IU/L ALT (SGPT) 22 0-44 IU/L X ray : Spines, thoracic spi ne Reviewed date:10/19/2024 10:29:59 AM Interpretation: Performing Lab: Notes/Report: X ray : Shoulder, left Reviewed date:10/19/2024 10:29:46 AM Interpretation: Performing Lab: Notes/Report: Acute Hepatitis Reviewed date:10/20/2024 04:44:35 PM Interpretation: Performing Lab:[facility] [place], [address] [facility], Phone - [phone], Director - Gia Notes/Report: Hep A Ab, IgM Negative Negative A negative anti-HAV IgM result suggests no recent or current HAV infection. HBsAg Screen Negative Negative Hep B Core Ab, IgM Negative Negative HCV Ab Non Reactive Non Reactive Interpretation: Comment Not infected with HCV unless early or acute infection is suspected (which may be delayed in an immunocompromised individual), or other evidence exists to indicate HCV infection. Chest X-ray PA and lateral Reviewed date:07/21/2024 12:07:02 PM Interpretation: Performing Lab: Notes/Report: Reason For Referral Reason please schedule Diagnosis 1 Chest congestion (R0 9.89) Referral Organization [employer] [facility] Simone Jacinto Referring Provider First Name Ricardo Referring Provider Last Name Saul Referring [facility] Referred Provider Kerri Wylie Referred Provider Specialty Pulmonology General Notes Mali Cabrales 03:56:43 PM >Pt. to see Benefits Technician fax# [phone] Clinical Notes Mali Cabrales 04:01:19 PM > referral faxed. Referral Priority Routine Reason please schedule Diagnosis 1 Sinus pressure (J34. 89) Referral Organization [employer] [facility] Yusuf Reeder Referring Provider First Name Sarah Referring Provider Last Name Chelita Referring Provider Speciality Nurse Alexa titionethomas Referred Provider tarsha Perez Referred Provider Specialty Ear, nose an d throat surgeon General Notes Mali Cabrales 04:07:05 PM >pt. to see ENT. Referral Priority Routine Diagnosis 1 Encounter for screen ing for malignant neoplasm of colon (Z12.11) Referral Organization [employer] [facility] Yusuf Reeder Referring Provider First Name NANCY Referring Provider Last Name SOLANGE Referring Provider Speciality Internal M edicine Referred Provider Uzma Malik Referred Provider Specialty Gastroentero logy General Notes Mali Cabrales Yousuf 04:38:06 PM > Pt. is getting colonoscopy and stated he needs a referral to see Dr. Malik. Clinical Notes Ricardo Hughes 10/08 04:46:09 PM >approved for 2 visits, thank you, Mali Cabrales Yousuf 10/22/2024 04:56:44 PM >referral faxed. Referral Priority Routine Medications Medication SIG (Take, Route, Frequency, Duration) Notes Start Date End Date Status PARoxetine HCl 10 MG 1 tablet in the mor sandie Orally Once a day; Duration: 90 days Active Vitamin D (Ergocalciferol) 1.25 MG (41470 UT) 1 capsule Orally Once a week; Duration: 84 days 10/20/2024 09/21/2025 Active Losartan Potassium 100 MG TAKE 1 TABLET BY MOUTH EVERY DAY; Duration: 90 Active Metoprolol Succinate ER 100 MG TAKE 1 TABLET BY MOUTH EVERY DAY; Duration: 90 Active Social History Tobacco Use: Social History Observation Description Date Details (start date - stop date) Never Smoker NA - NA Tobacco Use/Smoking Question Answer Notes Are you a nonsmoker Alcohol Screen (Audit-C) Question Answer Notes Did you have a drink contain ing alcohol in the past year? Yes How often did you have a dri nk containing alcohol in the past year? Monthly or less (1 point) How many drinks did you have on a typical day when you were drinking in the past year? 1 or 2 drinks (0 point) How often did you have 6 or more drinks on one occasion in the past year? 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 chemical plant- Works at a chemical plant- Problems Problem Type SNOMED Code ICD Code Onset Dates Problem Status W/U Status Risk Notes Problem Morbid obesity (822598639) Morbid obesity (E66.01) Active confirmed Problem Essential hypertension (10124012) Essential hypertension (I10) Active confirmed Problem Anxiety (44259973) Anxiety (F41.9) Active confi rmed Problem Thrombocytopenia (874523979) Thrombocytopenia (D69.6) Active confirmed Problem Obstructive sleep apnea syndrome (82483140) CHANDRAKANT (obstructive sleep apnea) (G47.33) Active confirmed 11/07/22 sleep study severe CHANDRAKANT Problem Allergic rhinitis (87351614) Chronic allergic rhinitis (J30.9) Active confirmed Problem Seasonal affective disorder (402576564) Seasonal affective disorder (F33.8) Active confirmed Problem Generalized anxiety disorder (01356709) Anxiety, generalized (F41.1) Active confirmed Vital Signs Heart Rate 75 /min 10/05/2024 O2 TAKEN AT RES T ON ROOM AIR Temperature 97.8 degrees Fahrenheit 10/05/2024 O2 T AKEN AT REST ON ROOM AIR Blood pressure diastolic 82 mm Hg 10/05/2024 O2 TAKEN AT REST ON ROOM AIR Oximetry 97 % 10/05/2024 O2 TAKEN AT RES T ON ROOM AIR Height 71 in 10/05/2024 O2 TAKEN AT RES T ON ROOM AIR Blood pressure systolic 130 mm Hg 10/05/2024 O2 T AKEN AT REST ON ROOM AIR Weight 262 lbs 10/05/2024 O2 TAKEN AT RES T ON ROOM AIR BMI 36.54 kg/m2 10/05/2024 O2 TAKEN AT RES T ON ROOM AIR Encounters Encounter Location Date Provider Diagnosis [facility] [address] [place] [address] 03/19/2024 Sarah Merlos Essential hypertensi on I10 ; Infectious mononucleosis without complication, infectious mononucleosis due to unspecified organism B27.90 ; Anxiety, generalized F41.1 ; CHANDRAKANT (obstructive sleep apnea) G47.33 and Thrombocytopenia D69.6 [address] [place] [address] 07/29/2024 Ricardo Hughes Acute left-sided thoracic back pain M54.6 [address] [address] [place] [address] 10/05/2024 Ricardo Hughes Essential hypertensi on I10 ; Encounter for general adult medical examination with abnormal findings Z00.01 ; Anxiety, generalized F41.1 ; Morbid obesity E66.01 ; CHANDRAKANT (obstructive sleep apnea) G47.33 ; Thrombocytopenia D69.6 ; Chronic allergic rhinitis J30.9 and Acute left-sided thoracic back pain M54.[address] [address] 07/20/2024 Ricardo Saul [address] [address] 07/21/2024 Ricardo Saul [address] [address] 08/17/2024 Ricardo Hughes [facility] [address] [place] [address] 08/20/2024 Ricardo Hughes [address] [address] 08/31/2024 NANCY NARVAEZ [address] [address] 09/15/2024 Ricardo Hughes [facility] [address] [place] [address] 10/20/2024 Ricardo Hughes [address] [address] 10/22/2024 NANCY NARVAEZ [address] [address] 01/18/2025 Ricardo Hughes Anxiety F41.9 Assessments Encounter Date Diagnosis (ICD Code) Assessment Notes Treatment Notes Treatment Clinical Notes Section Notes 03/19/2024 Essential hypertension (ICD-10 - I10) Chronic, controlled. BP in office today is 118/80. Within goal per 2017 ACC/AHA guidelines-Annual ACR: none on file-Annual CMP: Due Sep 2024-Baseline EKG obtained on October 2022-Alcohol screening performed: Pt consumes 1-2 drinks per month-Recommend minimum of 150 minutes moderate exercise per week-Continue losartan 100mg qd and metoprolol 100mg ej-Saqobr-by in 6 months 03/19/2024 Infectious mononucleosis without complication, infectious mononucleosis due to unspecified organism (ICD-10 - B27.90) Acute, improving. Diagnosed with mono 2 weeks ago, has had symptoms for 5 weeks total. Pt has no complaints but wanted us to be aware -Gave f/u instructions for worsening condition -F/u prn 07/29/2024 Acute left-sided thoracic back pain (ICD-10 - M54.6) Acute, uncontrolled. Pt had similar symptoms in Mar 2024 but improved spontaneously, pain returned in last 2-3 weeks. Denies trauma or hx of trauma to upper back or L shoulder. Described as somebody grabbing my muscle PE unremarkable other than mild rhomboid tenderness and minimal L sided scapular dyskinesia DDx: rhomboid deconditioning vs scapular dyskinesia vs rib somatic dysfunction -Reassurance given -Recommend scheduled ibuprofen over next 3-4 days -Cyclobenzaprine as needed -Given handout for thoracic stretching and back strengthening -F/u in 2 months at previously scheduled appt 10/05/2024 Essential hypertension (ICD-10 - I10) Chronic, controlled. BP in office today is 130/82. Within goal per ODL-1-Wgizrd ACR: none on file-Annual CMP: Due Sep 2024-Baseline EKG obtained on October 2022-Alcohol screening performed: Pt consumes 1-2 drinks per month-Recommend minimum of 150 minutes moderate exercise per week-Continue losartan 100mg qd and metoprolol 100mg td-Djwryq-no in 12 months 10/05/2024 Encounter for general adult medical examination with abnormal findings (ICD-10 - Z00.01) 43yo CM with PMHx of HTN, SIOBHAN, CHANDRAKANT and chronic allergic rhinitis presents for annual well exam.-Pneumococcal vaccine: Due at 65yo-Shingles vaccine: Due at 50yo-Flu vaccine: UTD per pt-Covid vaccine: UTD per pt-BP today: 130/82-BMI: 36-Tobacco use: Never smoker-Alcohol use: ~1 drink every 2-3 months-Anxiety/Dep ression screening: Negative-ASCVD risk: labs ordered-Diabetes screening: labs ordered-AAA screenin-75yo M who have ever smoked >100 cigarettes in lifetime-Colon Cancer Screening: Due, colonoscopy ordered (pt to call back with his 's GI doc)-Lung cancer screenin-78yo with 20yr pack hx in las 15yrs-Hepatitis C screening: Due, labs zxkujev-Wfjwyx-xn in 1 year 01/18/2025 Anxiety (ICD-10 - F41.9) 10/05/2024 Anxiety, generalized (ICD-10 - F41.1) Chronic, Stable. -PHQ-9 = 0-Denies SI/HI-Encouraged counseling-Pt to exercise 150 minutes of moderate exercise per week-Continue paroxetine 10mg qd-F/u in 12 months 03/19/2024 Anxiety, generalized (ICD-10 - F41.1) Chronic, Stable. -PHQ-9 = 0-Denies SI/HI-Encouraged counseling-Pt to exercise 150 minutes of moderate exercise per week-Continue paroxetine 10mg qd-F/u in 3 months 03/19/2024 CHANDRAKANT (obstructive sleep apnea) (ICD-10 - G47.33) 11/07/22 sleep study severe CHANDRAKANT Chronic, stable. October 2022 sleep study with AHI/RDI = 38.9-Compliant with CPAP-F/u in 6 months 10/05/2024 Morbid obesity (ICD-10 - E66.01) Chronic, stable. BMI 36. Comorbidities: HTN-Discussed barriers to weight loss: Lack of motivation, diet and lack of exercise-Initial weight loss goal of 10% body weight-Recommend minimum of 150 minutes moderate exercise per week-Discussed various diet options, emphasizing that all diets are equally effective and that adherence is the most important factor-F/u in 12 months 03/19/2024 Thrombocytopenia (ICD-10 - D69.6) Unknown chronicity, uncontrolled. Sep 2023 PLT = 110-Pt denies any bleeding-Will recheck CBC at next visit 10/05/2024 CHANDRAKANT (obstructive sleep apnea) (ICD-10 - G47.33) 11/07/22 sleep study severe CHANDRAKANT Chronic, stable. October 2022 sleep study with AHI/RDI = 38.9-Compliant with CPAP-F/u in 12 months 10/05/2024 Thrombocytopenia (ICD-10 - D69.6) Unknown chronicity, uncontrolled. Sep 2023 PLT = 110-Pt denies any bleeding-Will recheck CBC at next visit 10/05/2024 Chronic allergic rhinitis (ICD-10 - J30.9) Chronic, stable. Frequent URI with symptoms. Evaluated by ENT and Pulm in September2024 with no underlying causes found -Continue zyrtec qd. Discussed changing to matilde and addition of flonase -Recommend saline nasal rinse prn -F/u in 12 months 10/05/2024 Acute left-sided thoracic back pain (ICD-10 - M54.6) Acute, uncontrolled. 2-3 months of L shoulder/L sided back pain. Pt had similar symptoms in Mar 2024 but improved spontaneously. Denies trauma or hx of trauma to upper back or L shoulder. Described as somebody grabbing my muscle PE unremarkable other than mild rhomboid tenderness and minimal L sided scapular dyskinesia. Pt tried scheduled ibuprofen and attempted back exercises without improvement DDx: rhomboid deconditioning vs scapular dyskinesia vs rib somatic dysfunction -Continue tylenol/ibuprofen prn -Cyclobenzaprine as needed -L shoulder and thoracic spine x-ray ordered. Offered PT referral but pt states that he does not need referral with his insurance and will present to office near his home -F/u after PT if needed 03/19/2024 Other -ASCVD Risk: 2. 2% based on Sep 2023 lipid panel-Urine ACR: None on file-Baseline Cr: 0.85-HCV Antibody nonreactive in 02/2009-Vaccinatio n status: working on obtaining full vaccination records 07/29/2024 Other -ASCVD Risk: 2.2% based on Sep 2023 lipid panel-Urine ACR: None on file-Baseline Cr: 0.85-HCV Antibody nonreactive in 02/2009-Vaccinatio n status: working on obtaining full vaccination records 07/29/24 Exercises and cyclobenzaprine for upper back pain 10/05/2024 Other -ASCVD Risk: 2.2% based on Sep 2023 lipid panel-Urine ACR: None on file-Baseline Cr: 0.85-HCV Antibody nonreactive in 02/2009-Vaccinatio n status: working on obtaining full vaccination records 10/05/24 Colonoscopy ordered, PT and imaging for L upper back pain07/29/24 Exercises and cyclobenzaprine for upper back pain Plan Of Treatment Pending Test Test Name Order Date Hepatitis Panel (4) 10/05/2024 TSH Rfx on Abnormal to Free T4 3 Bipap and supplies 09/30/2023 Next Appt Details Provider Name:Ricardo Hughes , 10/11/2025 04:00:00 PM, [address] [place], [address], Insurance Providers Payer Name Payer Address Payer Phone Subscriber Number Group Number Insured Name Patient Relationship to Insured Coverage Start Date Coverage End Date [address] [place], [place] [phone] [id number] Remi Bradley Self - patient is the insured Medical (General) History Medical History History ICD Code Hypertension Surgical History Surgery Date(Month/Year) Appendectomy 2007
[2025-02-25 06:54] VITALS: BMI 34.8
--- NOTE | 2025-02-25 07:08 | P.PNAN_ITS ---
Anes - Initial Pre Proc Eval Procedure: Operation Date: 02/25/25 08:00 Proposed Procedures p Screening Colonoscopy - Chris Hester MD Date/Time: 02/25/25 07:08 Surgeon: Chris Hester MD Pre Op Diagnosis: Screening Patient Data Age: 44 Gender: M Height: 1.8 m Weight: 113.2 kg Allergies Allergy/AdvReac Type Severity Reaction Status Date / Time cephalexin Allergy Unknown Hives Verified 02/25/25 06:54 Home Medications ?Medication ?Instructions ?Recorded ?Confirmed ?Type losartan 100 mg tablet 100 mg PO DAILY 02/09/25 History metoprolol succinate 100 mg 100 mg PO DAILY 02/09/25 0 02/25/25 History tablet,extended release 24 hr paroxetine HCl 10 mg tablet 10 mg PO DAILY 02/09/25 History Patient hx anesthesia problems: none Family hx anesthesia problems: none Results Review: All pre-operative results and documents have been reviewed as part of the pre- operative evaluation. [facility] Past Medical History Medical History Obstructive sleep apnea Seasonal allergies Syncope Anxiety Hypertension Surgical History Surgical History Status post appendectomy 2007 Social History Social History Smoking status: Never smoker Substance use: never Living arrangements: with family Additional living arrangements comments: with sp Anes - Eval Final PreProcedure Day of Procedure 02/25/25 07:08 Patient weight: obese Heart: regular rate and rhythm Lungs: clear to auscultation Airway: Mallampati scale class II Neurological: alert and oriented Last oral intake: >/= 8 hours ASA classification: III Emergent: no Anesthetic plan: proceed Anesthesia type and monitoring: general GIVS and standard monitoring Results Review: All pre-operative results and documents have been reviewed as part of the pre- operative evaluation. Informed Consent: The patient's anesthetic plan and its attendant risks and benefits were discu ssed with the patient/family/POA. Questions were solicited and answers provided to the satisfaction of the patient/family/POA.
[2025-02-25] MEDS: LACTATED RINGERS 1,000 ML 150 ML IV CONT (07:22)
--- NOTE | 2025-02-25 07:56 | PM.IMHP ---
H&P: HPI History of Present Illness Date/Time: 02/25/25 07:56 Chief Complaint: Screening colonoscopy Narrative: This is the patient's first colonoscopy. There are no GI symptoms and there is no family history of colorectal cancer. Review of Systems Review of Systems: All systems reviewed & are unremarkable except as noted in HPI and below PMFSH Past Medical History Medical History Obstructive sleep apnea Seasonal allergies Syncope Anxiety Hypertension Surgical History Surgical History Status post appendectomy 2007 Social History Social History Smoking status: Never smoker Substance use: never Living arrangements: with family Additional living arrangements comments: with sp Meds Home Medications and Allergies Home Medications ?Medication ?Instructions ?Recorded ?Confirmed ?Type losartan 100 mg tablet 100 mg PO DAILY 02/09/25 02/25/25 History metoprolol succinate 100 mg 100 mg PO DAILY 02/09/25 02/25/25 History tablet,extended release 24 hr paroxetine HCl 10 mg tablet 10 mg PO DAILY 02/09/25 02/25/25 History Allergies Allergy/AdvReac Type Severity Reaction Status Date / Time cephalexin Allergy Unknown Hives Verified 02/25/25 06:54 Exam Const: General: cooperative and healthy appearing Resp: Effort & Inspection: normal respiratory effort and able to speak in complete sentences Auscultation: clear to auscultation bilaterally Cardio: Rate: regular rate Rhythm: regular rhythm GI: Inspection: normal to inspection GI Palp: No No hepatosplenomegaly present Auscultation: normal bowel sounds Rectal Exam: deferred Skin: General skin exam: normal color Psych: Appearance: grossly normal Mental Status: mental status grossly normal Assessment and Plan Assessment and plan (1) Encounter for screening colonoscopy: Code(s): Z12.11 - Encounter for screening for malignant neoplasm of colon Status: Acute Assessment and Plan: The patient is deemed a good candidate for the procedure. Consent signed. Will proceed.
--- NOTE | 2025-02-25 08:22 | S_PTH ---
PATIENT: Remi Bradley LOC: [facility] U#:[id number] AGE/SX: 44/M ROOM: RE02/25/[address]: Chris Hester MD : 1980 BED: DIS: 02/25/2025 SPEC #: [id number] RECD: 02/25/25 09:56 STATUS: MADDY REDoni #: [id number] KURT: 02/25/25 08:[address]: Chris Hester DEPT: [facility] Surgical RECD BY: Vanesa Ravi Tissues: A - Colon Polypectomy B - Colon Polypectomy C - Colon Polypectomy D - Colon Polypectomy Procedures: Hematoxylin and Eosin Stain Gross and Microscopic Level 4
[2025-02-25 08:24] VITALS: BP 107/68; PULSE 68; RESP 16; O2SAT 94
[2025-02-25 08:34] VITALS: BP 119/71; PULSE 74; RESP 18; O2SAT 99
[2025-02-25 08:44] VITALS: BP 128/83; PULSE 62; RESP 18; O2SAT 98
--- NOTE | 2025-02-26 10:45 | SUR.PHASEII ---
Endoscopy report faxed to Dr Ricardo Hughes today 02-26-25
== END 2025-02-25 08:51 | disposition home or self-care (01) ==
PROVIDERS: Visit Provider Internal Medicine Gastroenterology
PROC: 0DJD8ZZ Inspection of Lower Intestinal Tract, Via Natural or Artificial Opening Endoscopic (ICD-10-PCS; CPT 45378; principal; 2025-02-25 08:00)
DX: Z12.11 Encounter for screening for malignant neoplasm of colon (principal); D12.5 Benign neoplasm of sigmoid colon; K63.5 Polyp of colon; E66.9 Obesity, unspecified; Z68.34 Body mass index [BMI] 34.0-34.9, adult
CPT/HCPCS: 45385; 88305; J2003; J2704; J7120